=== PATIENT | male | born 1975 | race Caucasian/White ===

== ENCOUNTER 2025-05-03 14:37 | Emergency (ER) | payer OTHER, SELFPAY ==
[2025-05-03 14:42] VITALS: BP 130/78
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
[2025-05-03 15:59] VITALS: BMI 27.3
--- NOTE | 2025-05-03 16:04 | EDRN ---
Received patient in bed in [facility]. Patient cooperative with getting changed into scrubs. Patient upset that he was brought here instead of [facility] or [facility]. Patient stated 'You're not going to give me pain meds according to your sign
out there. At [facility] they give you anything you want. Your doctors here aren't going to be able to take care of me. My 2 doctors are at [facility] and [facility]. They would not take me to there because of the weather.' Patient stated that he uses
marijuana daily and last used last night.
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
[2025-05-03 18:00] VITALS: BP 114/74
[2025-05-03 22:43] VITALS: BP 140/88
== END 2025-05-04 01:00 ==
LOC: EMR 14:37
PROVIDERS: EMERGENCY PHYSICIAN Emergency Medicine; OTHER PHYSICIAN Psychiatry & Neurology Psychiatry
DX: F99 Mental disorder, not otherwise specified (principal); R45.1 Restlessness and agitation; L40.50 Arthropathic psoriasis, unspecified; I10 Essential (primary) hypertension; Z79.899 Other long term (current) drug therapy
CPT/HCPCS: 99285; 80306; 80307